=== PATIENT | female | born 1930 | race Caucasian/White ===

== ENCOUNTER 2018-09-28 08:34 | Inpatient (IN) | payer OTHER ==
[~2018-09-28] VITALS: Ht 172.7 cm; Wt 43.5 kg
[2018-09-28 08:36] VITALS: BP 165/75
[2018-09-28 09:26] LABS: ABSOLUTE NEUTROPHILS 2.5 thou/uL (1.4-8.2); BASOPHILS 0.8 % (0.0-2.0); EOSINOPHILS 5.6 % (0.0-3.0); HEMATOCRIT 32.5 % (37.0-47.0); HEMOGLOBIN 10.8 gm/dL (12.0-15.0); LYMPHOCYTES 25.2 % (24.0-44.0); MCH 31.6 pg (26.0-34.0); MCHC 33.3 g/dL (28.0-37.0); PLATELET COUNT 122 thou/uL (150-400); POLYS 57.4 % (36.0-66.0); RBC 3.42 mil/uL (4.20-5.00); RDW 16.3 % (10.5-14.5); WBC 4.4 thou/uL (4.0-11.0)
[2018-09-28 09:30] LABS: ANION GAP 9 mmol/L (7-16); BUN 39 mg/dL (7-18); CALCIUM 9.3 mg/dL (8.5-10.1); CHLORIDE 97 mmol/L (98-107); CO2 30 mmol/L (21-32); CREATININE 3.9 mg/dL (0.6-1.0); GLUCOSE 88 mg/dL (74-106); POTASSIUM 4.6 mmol/L (3.5-5.1); SODIUM 136 mmol/L (136-145)
[2018-09-28 09:40] LABS: ALBUMIN 3.2 g/dL (3.4-5.0); SGOT 32 U/L (15-37); SGPT 14 U/L (30-65); TOTAL BILIRUBIN 0.8 mg/dL (<0.1-1.0); TOTAL PROTEIN 8.1 g/dL (6.4-8.2); TROPONIN-I <0.06 ng/mL (<0.06)
[2018-09-28] MEDS ORDERED: GENTAMICIN100 MG/100 IV (09:42)
[2018-09-28] MEDS ORDERED: ASPIR 8181 MG PO (09:43)
[2018-09-28] MEDS ORDERED: VANCO 1.251.25 GM/25 IVPB (09:43)
[2018-09-28] MEDS ORDERED: AZELASTINE137 MCG/0. NASAL (09:44)
[2018-09-28] MEDS ORDERED: ARICEPT 5 MG TAB5 MG PO (09:45)
[2018-09-28] MEDS ORDERED: VOLTAREN GEL 1100 G2 TOP (09:45)
[2018-09-28] MEDS ORDERED: CYMBALTA60 MG PO (09:46)
[2018-09-28] MEDS ORDERED: SYNTHROID100 MC1 PO (09:47)
[2018-09-28] MEDS ORDERED: 24HR ALLERGY REL5 MG PO (09:47)
[2018-09-28] MEDS ORDERED: REMERON15 M2 PO (09:48)
[2018-09-28] MEDS ORDERED: SINGULAIR 10 MG10 M1 PO (09:48)
[2018-09-28] MEDS ORDERED: OXTELLAR XR300 MG PO (09:53)
[2018-09-28] MEDS ORDERED: OXTELLAR XR600 MG PO (09:54)
[2018-09-28] MEDS ORDERED: PRAVACHOL40 M1 PO (09:55)
[2018-09-28] MEDS ORDERED: PROTONIX40 M1 PO (09:55)
[2018-09-28] MEDS ORDERED: MIRALAX17 GM PO (09:55)
[2018-09-28] MEDS ORDERED: ZOFRAN ODT4 MG PO (09:56)
[2018-09-28] MEDS ORDERED: VITAMIN D2000 UNIT PO (09:56)
[2018-09-28] MEDS ORDERED: IMDUR 30 MG TAB30 M1 PO (09:56)
[2018-09-28] MEDS ORDERED: CARVEDILOL3.125 MG PO (09:57)
[2018-09-28] MEDS ORDERED: NEPRO CARB STE237 ML PO (09:57)
[2018-09-28] MEDS ORDERED: TYLENOL325 MG PO (09:58)
[2018-09-28] MEDS ORDERED: COZAAR 25 MG TA25 M1 PO (09:58)
[2018-09-28] MEDS ORDERED: XANAX 0.25 MG0.25 MG PO (09:59)
[2018-09-28] MEDS ORDERED: IPRAT-ALBUT 0.5-3 ML INH (10:00)
[2018-09-28 10:09] VITALS: BP 163/71
[2018-09-28 11:27] VITALS: BP 158/70
--- NOTE | 2018-09-28 13:38 | EKG ---
[place] [address] [place] [address] ELECTROCARDIOGRAM REPORT Name: AHSAN KIRK Room #: 452-P ADM IN M.R.#: [id number] ������������������ Admission: 09/28/18 ������������������ Attend Phys: August Gutierrez MD Discharge: ������������������ Date of : [birth year] Report #: [id number] ����������������������������������������������������������������� [id number] THIS REPORT FOR: //name// [facility] ED Test Date: 2018-09-28 Test Time: 08:44:59 Pat Name: AHSAN KIRK Department: Room: 45 Gender: F Manager Research Development: NEELIMA : 1930 Requested By: Cheyenne Patterson Order Number: [id number] MD: Brice Yanes Measurements Intervals [place] Rate: 75 P: 32 AR: 250 QRS: -19 QRSD: 127 T: 110 QT: 421 QTc: 471 Interpretive Statements Sinus rhythm Prolonged AR interval IVCD, consider atypical RBBB Nonspecific T abnormalities, lateral leads No previous ECG available for comparison Electronically Signed On 09-28-2018 13:37:59 CDT by Brice Yanes [email or web address] ��������������������������������������������� <ELECTRONICALLY SIGNED> ���������������������������������������� By: Brice Yanes MD, [facility] ��������������������������������������������� 09/28/18 1337 [id number] [id number] Brice Yanes MD, [facility] /EPI
[2018-09-28 15:00] VITALS: BP 171/62
--- NOTE | 2018-09-28 16:18 | NUR ---
ASSUMED CARE OF PT APPROX 1145. PT A&O TO SELF, VSS, NO PAIN. PT BREATHING REGULAR, HOB ELEVATED FOR EASE OF BREATHING, NON PRODUCTIVE COUGH PRESENT, NO SIGNS OF DISTRESS. BED IN LOW POSITION, FALL PRECAUTIONS IN PLACE, WILL CONTINUE TO MONITOR.
[2018-09-28 20:15] VITALS: BP 166/81
[2018-09-29 04:01] VITALS: BP 163/69
[2018-09-29 04:59] LABS: HEMATOCRIT 30.2 % (37.0-47.0); HEMOGLOBIN 10.2 gm/dL (12.0-15.0); MCH 32.1 pg (26.0-34.0); MCHC 33.6 g/dL (28.0-37.0); MCV 95.3 fL (80.0-100.0); RBC 3.17 mil/uL (4.20-5.00); RDW 16.5 % (10.5-14.5)
[2018-09-29 05:15] LABS: ALBUMIN 2.7 g/dL (3.4-5.0); CALCIUM 8.6 mg/dL (8.5-10.1); CREATININE 4.5 mg/dL (0.6-1.0); PHOSPHORUS 5.7 mg/dL (2.5-4.9); POTASSIUM 4.4 mmol/L (3.5-5.1)
--- NOTE | 2018-09-29 07:37 | NUR ---
PATIENT IS AOX2 AND WAS ABLE TO SLEEP THIS SHIFT. DAUGHTER IS AT BEDSIDE. PT HAS O2 VIA [place]. NO AGITATION THIS SHIFT AND NO THER CONCERN VOICED BY FAMILY OR PATIENT. HEMODIALYSIS IN THE AM. PT IS PROGRESSING TOWARDS DC GOALS.
[2018-09-29 07:50] VITALS: BP 94/61
[2018-09-29 14:00] VITALS: BP 145/51
--- NOTE | 2018-09-29 15:49 | NUR ---
INITIAL ASSESSMENT: Pt evaluated for d/c planning needs. Reviewed chart and spoke with nurse, pt and pt's 2 daughters. Pt was living at home with her daughter prior to admission to [facility]. Pt apparently was at [facility] for about 14 days, and then went to SNF at [facility] (where she has been for about 21 days). Pt and family live in [place]. Family is interested in pt going to facility closer to family. Discussed options, and family wants referrals sent to [facility], [facility] and [facility]. Called facilities and faxed referrals. Pt and family would prefer not returning to [facility] if able to find another facility closer. Pt has dialysis Saturday and Saturday at [facility]. Pt transfers via [facility]. Will remain available to assist as needed and make appropriate referrals.
--- NOTE | 2018-09-29 18:30 | NUR ---
PT ASSESSED THIS AM. DIALYZED W/O INCIDENT. TOOK MEDS CRUSHED IN APPLESAUCE. HAS VERY CONJESTED NONPRODUTIVE COUGH. DR. LOCK IN THIS AFTERNOON AND ADDED IV MERREM. PT UP TO THE BR W/ ASSISTANCE USING WALKER. HAD 2 BM'S. EATING VERY SM AMTS.
[2018-09-29 19:02] VITALS: BP 159/66
[2018-09-30 03:21] VITALS: BP 155/59
[2018-09-30 05:07] LABS: HEMATOCRIT 32.6 % (37.0-47.0); HEMOGLOBIN 10.7 gm/dL (12.0-15.0); MCH 31.4 pg (26.0-34.0); MCHC 32.8 g/dL (28.0-37.0); MCV 95.6 fL (80.0-100.0); RBC 3.42 mil/uL (4.20-5.00); RDW 16.4 % (10.5-14.5); WBC 4.8 thou/uL (4.0-11.0)
[2018-09-30 05:16] LABS: ALBUMIN 2.9 g/dL (3.4-5.0); CALCIUM 8.4 mg/dL (8.5-10.1); PHOSPHORUS 2.7 mg/dL (2.5-4.9); POTASSIUM 3.4 mmol/L (3.5-5.1)
[2018-09-30 05:19] LABS: CREATININE 2.7 mg/dL (0.6-1.0)
[2018-09-30 07:24] VITALS: BP 155/55
--- NOTE | 2018-09-30 07:52 | NUR ---
PT IS AO X2. PT SLEPT PART OF THE NIGHT. PT PLACED IN ISOLATION DUE TO LOOSE STOOLS. CDIFF RESULTS PENDING. NO OTHER QUESTIONS OR CONCERNS AT THIS TIME. PT IS PROGRESSING TOWARDS DC GOALS.
[2018-09-30 15:55] VITALS: BP 149/48
--- NOTE | 2018-09-30 16:35 | NUR ---
CM FOLLOWED UP WITH THE THREE FACILITIES THAT REFERRALS HAD BEEN SENT TO [facility] INDICATED THAT THEY WOULDN'T BE ABLE TO MEET PT'S NEEDS. THE [facility] IS ABLE TO ACCEPT PT FOR POST ACUTE AND POSSIBLE TRANSITION TO LTC AND [facility] HADN'T RECIEVED REFERRAL. CM REFAXED TO [facility]. CM TO NOTIFY PT AND FAMILY AND FOLLOW INDICATED WITH DC PLANNING.
--- NOTE | 2018-09-30 17:33 | NUR ---
ASSUMED CARE OF PT AT 0700. ASSESSMENT COMPLETED. ALERT TO SELF AND PLACE ONLY, HX DEMENTIA. SOME ANXIETY NOTED, MEDS GIVEN ORDERED. ROOM AIR. LUNG SOUNDS CRACKLES, PHYSICIAN AWARE. C.DIFF STOOL SAMPLE SENT TO LAB, NEGATIVE RESULTS, REMOVED FROM ISOLATION. FAMILY VISITED EARLIER. FALL PRECAUTIONS IN PLACE. PT IN STABLE CONDITION. NO OTHER CHANGE IN STATUS.
[2018-09-30 19:16] VITALS: BP 147/52
--- NOTE | 2018-09-30 19:48 | HC ---
[facility] [address] [place] [address] CONSULTATION Name: AHSAN KIRK Room #: 452-P ADM IN M.R.#: [id number] Admission: 09/28/18 ������������������ Attend Phys: August Gutierrez MD Discharge: ������������������ Date of : [birth year]/14/[birth year] Report #: [id number] THIS REPORT FOR: //name// CC: August Luz REASON FOR CONSULTATION: End-stage renal disease. HISTORY OF PRESENT ILLNESS: This is an 88-year-old with a past medical history of end-stage renal disease, diabetes mellitus, hypertension, dementia and hyperlipidemia. She was residing at the [facility]. She was transferred yesterday as she became more confused talking to people who were not present. This is per the family. She has been maintained on dialysis every Saturday and Saturday. She has been on dialysis for the last 9 years. She was recently treated for what was described as diskitis per the family and I am not sure how accurate is this. She presented yesterday with the above-mentioned complaint and was found to have small bilateral pleural effusions with cardiomegaly. She was admitted to further evaluate her mental status and being consulted to manage her end-stage renal disease. PAST MEDICAL HISTORY: 1. Hypertension. 2. Diabetes mellitus. 3. Recent diskitis. 4. Peripheral vascular disease. 5. Convulsion disorder. 6. Hyperlipidemia. 7. TIA. MEDICATIONS: 1. Diclofenac local. 2. Levothyroxine. 3. Oxcarbazepine. 4. Pravastatin. 5. Losartan. 6. Carvedilol. 7. Gentamicin. 8. Vancomycin. REVIEW OF SYSTEMS: GENERAL: No fever or chills. CARDIOVASCULAR: No chest pain or palpitation. PULMONARY: As per the history of present illness. GASTROINTESTINAL: No nausea or vomiting. NEUROLOGIC: As per the history of present illness. ALLERGIES: PENICILLIN, MORPHINE AND CIPROFLOXACIN. [facility] [address] [place] [address] CONSULTATION Name: AHSAN KIRK Room #: 452-P [facility] IN [facility].#: [id number] Admission: 09/28/18 ������������������ Attend Phys: August Gutierrez MD Discharge: ������������������ Date of : [birth year]/14/[birth year] Report #: [id number] FAMILY HISTORY: Significant for diabetes mellitus and hypertension. PHYSICAL EXAMINATION: VITAL SIGNS: Blood pressure is 163/69, temperature . HEAD AND NECK: No jugular venous distention. CHEST: Decreased air entry bilaterally. CARDIOVASCULAR: No rub detected. ABDOMEN: Soft, nontender. LOWER EXTREMITIES: No edema. LABORATORY DATA: Laboratory values reviewed. White blood cell count is 4.0, platelets are 97,000. Sodium is 134, potassium is 4.4, BUN is 49 and creatinine is 4.5. CT chest is significant for effusion. ASSESSMENT, IMPRESSION AND PLAN: 1. End-stage renal disease. 2. Recent diskitis per the family. 3. Hypertension. 4. Thrombocytopenia. 5. We will arrange for the patient to have her routine usual hemodialysis. We would like to obtain her [facility] medical records regarding her recent hospitalizations. 6. Diabetes mellitus. Medications resumed by the primary care physician. 7. Infectious Disease consultation. 8. Blood pressure control. 9. We will continue to follow along after we review the patient's medical charts. ��������������������������������������������� <ELECTRONICALLY SIGNED> ���������������������������������������� By: Noble Osuna MD ��������������������������������������������� 09/30/18 [id number] Noble Osuna MD /nt
[2018-10-01 03:30] VITALS: BP 161/56
[2018-10-01 07:21] VITALS: BP 166/64
--- NOTE | 2018-10-01 07:58 | NUR ---
PT AO X2. PT SLEPT PART OF THE NIGHT. ON ROOM AIR THIS SHIFT. NO OTHER QUESTIONS OR CONCERNS AT THIS TIME PROM PT OR FAMILY. PT IS PROGESSING TOWARDS DC GOALS.
--- NOTE | 2018-10-01 10:30 | NUR ---
DISCHARGE PLANNING. PATIENT ANTICIPATED TO DISCHARGE TOMORROW. POST ACUTE CARE NEEDED AT DISCHARGE. REFERRAL FAXED PER PATIENT REQUEST TO [facility]. CALL PLACED TO FEROZ, AARON FOR [facility] TO NOTIFY OF PATIENT REFERRAL AND PATIENTS DISCHARGE NEEDS. FEROZ TO REVIEW AND CONTACT ONCE REVIEW COMPLETE. FOLLOWING TO ASSIST.
--- NOTE | 2018-10-01 15:37 | NUR ---
CM FOLLOWED UP WITH [facility] AND THEY INDICATED THAT THEY ARE OUT OF NETWORK WITH PT'S INSURANCE. CM CALLED AND NOTIFIED PT'S DTR DPBRIDGETTE MALLOY THAT NEITHER [facility] OR [facility] ARE ABLE TO ACCEPT BUT THAT THE [facility] CAN. CM INDICATED THAT THEY WOULD WANT PT TO HAVE HER DIALYSIS TRANSFERED TO EITHER [facility] OR [facility] AND THAT THEY WOULD PROVIDE TRANSPORT TO AND FROM. CM ASKED DTR IS SHE WAS AGREEABLE FOR CM TO INITIAT PROCESS OF TRANSFERING DIALYSIS CLINICS AND SHE INDICATED SHE WAS GOING TO REACH OUT TO HER BROTHER WHO IS CO DPOA AND CALL CM BACK.
[2018-10-01 15:38] VITALS: BP 171/83
--- NOTE | 2018-10-01 17:25 | NUR ---
Assumed pt care this am, alert and oriented to self, pt tends to be very confused and forgetful. Fistula on the left US intact and patent. Seem by the MD, dialysis done today. Meropenem on hold due to dialysis, heparin for dialysis given to dialysis nurse. Hydration and nutrition promoted, POC followed.
[2018-10-02 04:53] VITALS: BP 149/52
--- NOTE | 2018-10-02 05:24 | NUR ---
PT IS AOX2 AND WAS ABLE TO SLEEP PART OF THE SHIFT. NO S/S OF ACUTE DISTRESS. WILL CONTINUE TO MONITOR. PT IS PROGRESSING TOWARDS DC GOALS.
[2018-10-02 07:20] VITALS: BP 166/72
[2018-10-02 09:04] LABS: HEMATOCRIT 34.7 % (37.0-47.0); HEMOGLOBIN 11.4 gm/dL (12.0-15.0); MCH 30.9 pg (26.0-34.0); MCHC 32.9 g/dL (28.0-37.0); MCV 93.7 fL (80.0-100.0); RBC 3.71 mil/uL (4.20-5.00); WBC 5.4 thou/uL (4.0-11.0)
[2018-10-02 09:23] LABS: CALCIUM 8.9 mg/dL (8.5-10.1); CREATININE 2.8 mg/dL (0.6-1.0); MAGNESIUM 1.8 mg/dL (1.8-2.4); POTASSIUM 3.5 mmol/L (3.5-5.1)
--- NOTE | 2018-10-02 13:36 | NUR ---
DTR INDICATED THAT THEY WISH TO PROCEDE WITH ESTABLISHING PT WITH [facility] SO SHE IS ABLE TO GO THER UPON ADMISSION TO THE [facility]. [facility] TO INITIATE PROCESS. CM ASKED PHYSICIAN TO ORDER HEP PANEL. CM TO FOLLOW INDICATED WITH DC PLANNING.
[2018-10-02 13:58] VITALS: BP 127/53
--- NOTE | 2018-10-02 18:32 | NUR ---
PT A&OX2, VSS, NO SIGNS OF DISTRESS, DENIES PAIN. PT HAS BEEN ASSISTED WITH [facility]. PLAN IS TO CHANGE REHAB FACILITIES. CALL LIGHT WITHIN REACH, BED IN LOWEST POSITION, RICARDO. CONTINUE TO MONITOR.
[2018-10-02 20:02] VITALS: BP 149/61
--- NOTE | 2018-10-03 01:53 | NUR ---
Assumed care at 1845. Pt resting in bed. AOX4. VSS. No S/S of acute distress. Pt waiting to be discharged to [facility]. No identified needs at the moment. Call light within reach. Will continue to monitor.
[2018-10-03 02:05] LABS: HAV IgM AB (ANTI-HAV IgM) Negative (Negative); HEPATITIS B SURFACE AG Negative (Negative); HEPATITIS C VIRUS AB 0.1 (0.0-0.9)
[2018-10-03 03:47] VITALS: BP 157/63
[2018-10-03 04:54] LABS: ALBUMIN 2.9 g/dL (3.4-5.0); CALCIUM 9.2 mg/dL (8.5-10.1); CREATININE 3.5 mg/dL (0.6-1.0); PHOSPHORUS 3.3 mg/dL (2.5-4.9); POTASSIUM 3.4 mmol/L (3.5-5.1)
[2018-10-03 08:15] VITALS: BP 153/61
[2018-10-03 14:34] VITALS: BP 138/50
--- NOTE | 2018-10-03 16:00 | NUR ---
PT HAS BEEN MEDICALLY ACCEPTED TO [facility] FOR SKILLED POST ACUTE CARE STAY WE ARE AWAITING INSURANCE AUTH. SHOULD OT NOT SEE PT UNTIL Saturday10/04/18 PLEASE FAX OT NOTE TO . PT HAS A TTS CHAIR TIME SET UP TENATIVELY AT [facility]. WE ARE STILL AWAITING A CHAIR TIME TO BE ASSIGNED CHAIR TIME. [facility] PHONE: FAX: [facility] INTAKE PHONE: FAX:
--- NOTE | 2018-10-03 17:06 | NUR ---
PT A&O, VSS, TYLENOL GIVEN FOR BACK PAIN. PT UP 1 ASSIST TO BEDSIDE COMMODE. IV CLOTTED IN RIGHT FOREARM, IV TEAM PAGED. PT RECEIVED DIALYSIS TODAY. FAMILY UP TO VISIT. PT USES CALL LIGHT APPROPRIATELY, BED IN LOWEST POSITION, WILL CONTINUE TO MONITOR.
[2018-10-03 20:02] VITALS: BP 128/43
[2018-10-04 03:15] VITALS: BP 148/51
--- NOTE | 2018-10-04 04:41 | NUR ---
Assumed care at 1845. Pt resting in bed. AOX2. Had an episode of Chest pain. CHOCOLATE FINISHER ordered EKG, Troponin and both tests came back negative. Hydralazine order prn for SBP>160. Pt accepted to the [facility] for skilled post acute care stay. Still waiting on insurance auth. Nurse to fax OT notes to the [facility] with PT doesnt see PT today. No identified needs at the moment. Will continue to monitor.
[2018-10-04 08:00] VITALS: BP 130/69
--- NOTE | 2018-10-04 14:25 | NUR ---
Assumed pt care at 7am.Pt in and out of bed with assistance.Assessment completed.vss.Assisted pt with meals.Fair appetite.Pt loves nepro with with ice.It was given and well tolerated.Pt dtr here and updates given.Dr Cooney here,order noted.Ativan po given per family request.Pt now back in bed resting without c/o.Will continue to monitor.
[2018-10-04 15:24] VITALS: BP 132/60
--- NOTE | 2018-10-04 15:46 | EKG ---
[address] [place] [address] ELECTROCARDIOGRAM REPORT Name: AHSAN KIRK Room #: 452- ADM IN M.R.#: [id number] ������������������ Admission: 09/28/18 ������������������ Attend Phys: August Gutierrez MD Discharge: ������������������ Date of : [birth year]/14/30 Report #: [id number] ����������������������������������������������������������������� [id number] THIS REPORT FOR: //name// [facility] Test Date: 2018-10-03 Test Time: 22:53:52 Pat Name: AHSAN KIRK Department: Room: 452 Gender: F Plate Inspector: aminta arcos : 1930 Requested By: Geno Del Castillo Order Number: [id number] MD: Manny Holbrook Measurements Intervals [place] Rate: 69 P: -16 PA: 191 QRS: 40 QRSD: 110 T: 162 QT: 419 QTc: 449 Interpretive Statements Sinus rhythm Lateral ST changes due to ischemia vs LVH Compared to ECG 09/28/2018 08:44:59 First degree AV block no longer present T-wave abnormality no longer present Electronically Signed On 10-04-2018 15:46:18 CDT by Manny Holbrook [email or web address] ��������������������������������������������� <ELECTRONICALLY SIGNED> ���������������������������������������� By: Manny Holbrook MD ��������������������������������������������� 10/04/18 1546 [id number] Manny Holbrook MD /EPI
[2018-10-04 19:38] VITALS: BP 117/53
--- NOTE | 2018-10-05 04:00 | NUR ---
ASSUMED CARE AT 1900. PT AO X3. INTERMITTENT CONFUSION. [place]. DENIES CHEST PAIN, SOA, N/V. REPORTS FEELING ANXIOUS. ATIVAN X1 GIVEN. VITALS STABLE. LUNGS CLEAR/DEMINISHED. AND REMAINS SR ON THE MONITOR. VOIDS BY BEDSIDE COMMMON. BRUIT PRESENT ON THE DIALYSIS FISTULA. NO OTHER COMPLAINS AT THIS TIME. WILL CONTINUE TO MONITOR.
[2018-10-05 04:29] VITALS: BP 167/71
[2018-10-05 07:30] VITALS: BP 139/61
--- NOTE | 2018-10-05 10:04 | NUR ---
PT IN BED ATE BREAKFAST TOOK AM MEDICATIONS PT IS HARD OF HEARING BUT CAN HEAR AND MAKE NEEDS KNOWN. DOCTOR HERE TO SEE PATIENT.
[2018-10-05 13:36] VITALS: BP 120/58
[2018-10-05 19:30] VITALS: BP 100/36
--- NOTE | 2018-10-06 04:02 | NUR ---
PT AOX3 AND WAS ABLE TO GET SOME SLEEP THIS SHIFT. PT HAS NO QUESTIONS OR CONCERNS AT THIS TIME. POSSIBLE DISCHARGE AWAITING INSURANCE AUTHORIZATION. NO SIGNS OF ACUTE DISTRESS. WILL CONTINUE TO MONITOR.
[2018-10-06 05:24] VITALS: BP 137/44
[2018-10-06 08:20] VITALS: BP 163/54
[2018-10-06 14:32] VITALS: BP 118/56
--- NOTE | 2018-10-06 15:27 | NUR ---
office workforce planner sent initial referral to [facility] fax [phone] attention Brunilda Lazcano. ELISA/WILBERT Jose spoke earlier to Brunilda at facility and Brunilda is expecting referral.
--- NOTE | 2018-10-06 17:09 | NUR ---
CM FOLLOWED UP WITH [facility] INTAKE AND THEY HAVE ALL NEEDED DOCUMENTATION TO [facility] THEY ARE FINIALIZING INTERNAL TRANSFER FROM [facility]. PT'S DTR ASKED THAT REFERRAL BE SENT TO [facility]. REFERRAL SENT. CM FOLLOWING.
--- NOTE | 2018-10-06 18:31 | NUR ---
PT A&OX3, VSS, DENIES PAIN. PT HAD DIALYSIS TODAY. PT IS AWAITING TO PLACED IN LTC FACILITY. FALL PRECAUTIONS IN PLACE, CALL LIGHT WITHIN REACH. FAMILY AT BEDSIDE. WILL CONTINUE TO MONITOR. PT HAS BRUISING AT INJECTION SITE LEFT LOWER ABDOMEN.
[2018-10-06 19:46] VITALS: BP 131/45
[2018-10-07 04:45] VITALS: BP 168/53
--- NOTE | 2018-10-07 05:20 | NUR ---
ASSUMED CARE OF PT AT 1900HRS. PT AOX2 AND WAS ABLE TO GET SOME SLEEP THIS SHIFT. NO SS OF ACUTE DISTRESS. NO OTHER QUESTIONS OR CONCERNS AT THIS TIME. PT PROGRESSING TOWARDS DC GOALS.
[2018-10-07 08:24] VITALS: BP 153/55
--- NOTE | 2018-10-07 14:05 | NUR ---
dp sent today's pt and ot notes to [place].
--- NOTE | 2018-10-07 14:43 | NUR ---
CM SPOKE WITH [facility] AND THEY INDICATED THAT THEY HAVE A SLOT FOR PT AT [facility] FOR TRS SECOND SHIFT. ELISA SPOKE WITH RISA IN ADMISSIONS AT [facility] AND SHE INDICATED THAT SHE HAD SUBMITTED FOR AUTH THROUGH [facility] AND REQUESTED TODAYS THERAPY NOTES. DC [employer] SUPPLY LOAD BUILDER FAXED THEM. NOW AWAITING AUTH FOR [facility]. CM TO FOLLOW INDICATED WITH DC PLANNING.
[2018-10-07 14:46] VITALS: BP 107/45
[2018-10-07 19:35] VITALS: BP 101/49
--- NOTE | 2018-10-07 19:36 | NUR ---
ASSUMED CARE OF PT AT APPROX 0700. ASSESSMENT CHARTED. MONITORED ON TELE. FOLLOED POC. WAITING PLACEMENT. FAMILY AND PT UPDATED. PT WAS FEELING ANXIOUS IN AFTERNOON, RELIVED WITH PRN ANXIETY MEDICATIONS.
[2018-10-08 03:19] VITALS: BP 139/56
--- NOTE | 2018-10-08 05:38 | NUR ---
PT AOX2 AND SLEPT MOST OF THE SHIFT ON A RECLINER. NO S/S OF ACUTE DISTRESS. PT WAITING FOR PLACEMENT/AUTHORIZATION FOR NEW HURSING HOME. NO QUESTIONS OR CONCERNS AT THIS TIME. RICARDO CONTINUE TO MONITOR.
[2018-10-08 14:38] VITALS: BP 120/55
[2018-10-08] MEDS ORDERED: DOXYCYCLINE HYC50 MG PO (15:41)
[2018-10-08] MEDS ORDERED: PROBIOTIC1 EAC1 PO (15:41)
[2018-10-08] MEDS ORDERED: HEPARIN SO5000 UNIT/ SUBQ (15:41)
[2018-10-08] MEDS ORDERED: OXTELLAR XR600 MG PO (16:10)
[2018-10-08] MEDS ORDERED: OXTELLAR XR300 MG PO (16:10)
--- NOTE | 2018-10-08 16:16 | NUR ---
[facility] GOT AUTH FROM INSURANCE FOR PT TO DC THERE TODAY. CM NOTIFIED [facility] INTAKE AND THEY ASSIGNED PT AN 11:30 CHAIR TIME TRS AT [facility]. CM NOTIFIED RISA IN ADMISSIONS AT [facility] AND [facility]. RISA INDICATED THAT THEY DON'T PROVIDE TRANSPORT BUT THAT WE COULD ARRANGE IT AND BILL THEM. CM CALLED [facility] AND SCHEDULED WC VAN TRANSPORT BETWEEN 5:30 AND 6:00. CHART COPIED. ORDERS FAXED. REPORT TO BE CALLED TO . NO OTHER CM INTERVENTION INDICATED AT THIS TIME.
--- NOTE | 2018-10-09 16:04 | HC ---
[facility] [place] [address] CONSULTATION Name: AHSAN KIRK Room #: 452-P [facility] IN M.R.#: [id number] Admission: 09/28/18 ������������������ Attend Phys: August Gutierrez MD Discharge: 10/08/18 ������������������ Date of : [birth year] Report #: [id number] THIS REPORT FOR: //name// CC: August Luz DATE OF SERVICE: 09/28/2018 INFECTIOUS DISEASE CONSULTATION ATTENDING PHYSICIAN: August Gutierrez M.D. REASON FOR EVALUATION: Diskitis. HISTORY OF PRESENT ILLNESS: Chart reviewed, patient examined. This is an 88-year-old woman with known history of dementia, who lives in a facility, staff noted increasing encephalopathy and also found to be in respiratory distress. Evaluation noted bilateral pleural effusions. She was given breathing treatment. It was somewhat difficult to get a history. Apparently within the last month, she has been hospitalized at outside hospital with ultimate diagnosis of diskitis. We do not have any details, other than she is a dialysis patient and was receiving a thrice weekly vancomycin and gentamicin with dialysis. She notes intermittent back pain. She did describe situation where she was fairly acutely unable to walk ____ fevers or chills. She does admit to anorexia and describes about a 30-pound weight loss. She does complain of difficulty clearing her pulmonary secretions. Denies any abdominal complaints. ALLERGIES: LISTED PENICILLIN, CIPROFLOXACIN, MORPHINE. CURRENT MEDICATIONS: Include gentamicin ____ mg thrice weekly with dialysis, pantoprazole, aspirin, losartan, isosorbide mononitrate, donepezil, levothyroxine, heparin, montelukast, carvedilol, vancomycin, duloxetine, p.r.n. analgesics, antiemetics, alprazolam, ipratropium, albuterol inhaler. PAST MEDICAL HISTORY: As described above, history of dementia, hypothyroidism, reflux, history of seizures, hypertension, hyperlipidemia, previous TIAs, end-stage renal disease, on dialysis thrice weekly, and above noted history of diskitis. FAMILY HISTORY: Noncontributory. REVIEW OF SYSTEMS: As above, otherwise unremarkable, perhaps not reliably obtained. PHYSICAL EXAMINATION: GENERAL: She appears chronically ill, undernourished, she is pleasant, [facility] [address] [place] [address] CONSULTATION Name: AHSAN KIRK Room #: 452-P [facility] IN M.R.#: [id number] Admission: 09/28/18 ������������������ Attend Phys: August Gutierrez MD Discharge: 10/08/18 ������������������ Date of : [birth year] Report #: [id number] cooperative, clearly she has a degree of dementia. She does have some intermittent coughing during the exam and she has audible retained secretions. VITAL SIGNS: Temperature 98, pulse 71, respirations 20, blood pressure ____. SKIN: Warm, dry. HEENT: Normocephalic. Extraocular muscles intact. NECK: Supple. LUNGS: Scattered wheezes with diminished at the bases. There are scattered rhonchi as well. HEART: Distant, regular. I do not appreciate a murmur. ABDOMEN: Soft, nontender, nondistended. EXTREMITIES: No significant edema. GENITOURINARY AND RECTAL: Deferred. LABORATORY DATA: Sed rate of 50. Procalcitonin 0.4. CT chest, bilateral pleural effusions, heterogeneous ground-glass opacity in the lingula and bilateral lower lobes, cardiomegaly with T11 vertebral deformity. CRP elevated at 87.1. Lactic acid of 0.8. Electrolytes: Sodium 136, potassium 4.6, chloride 97, bicarbonate is 30, anion gap of 9, BUN and creatinine 39 and 3.9, glucose of 88, AST of 32, ALT 14, albumin 3.2, total protein of 8.1, estimated GFR of 11. CBC: White count of 4.4, H and H 10.8 and 32.5, platelets of 122. Chest x-ray with perihilar mixed interstitial alveolar infiltrates, edema versus multifocal pneumonia. ASSESSMENT: Diskitis by history, it is not entirely clear, would certainly raise the issue of possible Enterococcus is the organism perhaps in the setting of PENICILLIN allergy, be a reasonable approach. We will try to obtain records from [facility] to get the exact details. She is receiving ____ regimen with dialysis thrice weekly, whether that is associated with the encephalopathy it is not clear. Certainly, she has underlying pulmonary issues and this is primarily a fluid overload problem. I do not think she will be able to expectorate any sputum for evaluation. See how she does clinically over the next 24 hours, certainly could add some better gram-negative coverage for the ____. We have to dose intermittently based on the renal dysfunction. Given the pattern, atypical infection is a consideration as well. We will discuss with Dr. Rajan. ��������������������������������������������� <ELECTRONICALLY SIGNED> ���������������������������������������� By: Thierno Bryant MD ��������������������������������������������� 10/09/18 1604 [id number] Thierno Bryant MD /nt
== END 2018-10-08 19:18 | DRG 551 ==
LOC: ER 08:34 → 4W 10:18 → EROBS 10:18 → 4W 11:41
PROVIDERS: Internal Medicine; Internal Medicine Nephrology; Student in an Organized Health Care Education/Training Program; ADMIT Hospitalist
PROC: 5A1D70Z Performance of Urinary Filtration, Intermittent, Less than 6 Hours Per Day (ICD-10-PCS; principal; 2018-09-29)
PROC: 5A1D70Z Performance of Urinary Filtration, Intermittent, Less than 6 Hours Per Day (ICD-10-PCS; 2018-10-01)
PROC: 5A1D70Z Performance of Urinary Filtration, Intermittent, Less than 6 Hours Per Day (ICD-10-PCS; 2018-10-03)
PROC: 5A1D70Z Performance of Urinary Filtration, Intermittent, Less than 6 Hours Per Day (ICD-10-PCS; 2018-10-06)
PROC: 5A1D70Z Performance of Urinary Filtration, Intermittent, Less than 6 Hours Per Day (ICD-10-PCS; 2018-10-08)
DX: M46.46 Discitis, unspecified, lumbar region (principal); J18.9 Pneumonia, unspecified organism; N18.6 End stage renal disease; G93.41 Metabolic encephalopathy; I12.0 Hypertensive chronic kidney disease with stage 5 chronic kidney disease or end stage renal disease; J90 Pleural effusion, not elsewhere classified; Z68.1 Body mass index [BMI] 19.9 or less, adult; E03.9 Hypothyroidism, unspecified; F32.9 Major depressive disorder, single episode, unspecified; K21.9 Gastro-esophageal reflux disease without esophagitis; E78.5 Hyperlipidemia, unspecified; F03.90 Unspecified dementia, unspecified severity, without behavioral disturbance, psychotic disturbance, mood disturbance, and anxiety; E11.51 Type 2 diabetes mellitus with diabetic peripheral angiopathy without gangrene; D69.6 Thrombocytopenia, unspecified; E87.70 Fluid overload, unspecified; E11.22 Type 2 diabetes mellitus with diabetic chronic kidney disease; G40.909 Epilepsy, unspecified, not intractable, without status epilepticus; E87.6 Hypokalemia; Z99.2 Dependence on renal dialysis; Z86.73 Personal history of transient ischemic attack (TIA), and cerebral infarction without residual deficits; Z88.6 Allergy status to analgesic agent; Z88.1 Allergy status to other antibiotic agents; Z88.0 Allergy status to penicillin; Z79.82 Long term (current) use of aspirin; Z79.899 Other long term (current) drug therapy
CPT/HCPCS: 10045; 32100